=== PATIENT | female | born 2000 | race Caucasian/White ===

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

== ENCOUNTER 2019-07-04 12:40 | Emergency (ER) | payer OTHER ==
[2019-07-04 12:59] VITALS: TEMP 98.3
[2019-07-04] MEDS: DEXAMETHASONE SOD PHOSPHATE 4 MG/ML 1 ML VIAL IV STA (14:17)
[2019-07-04] MEDS: SODIUM CHLORIDE 0.9% 1,000 ML IV ONE (14:17)
[2019-07-04 14:40] LABS: ALT 92 U/L (4-34); AST 41 U/L (14-36); African American GFR (CKD) >90 (>60 ml/min/1.73 sqM); Albumin 4.9 g/dL (3.5-5.0); Alkaline Phosphatase 88 U/L (38-126); Anion Gap 12 mmol/L; Blood Urea Nitrogen 19 mg/dL (7-17); Calcium 10.4 mg/dL (8.4-10.2); Carbon Dioxide 24 mmol/L (22-30); Chloride 106 mmol/L (98-107); Glucose 106 mg/dL (74-99); Non-African American GFR(CKD) >90 (>60 ml/min/1.73 sqM); Potassium 4.3 mmol/L (3.5-5.1); Sodium 142 mmol/L (137-145); Total Protein 8.3 g/dL (6.3-8.2)
[2019-07-04 14:47] LABS: Basophils % (A) 0 %; Eosinophils % (A) 0 %; HCT 43.2 % (34.0-46.0); HGB 14.2 gm/dL (11.4-16.0); Lymphocytes # (A) 2.5 k/uL (1.0-4.8); Lymphocytes % (A) 17 %; MCH 26.2 pg (25.0-35.0); MCHC 32.8 g/dL (31.0-37.0); Mean Platelet Volume 7.2; Monocytes # (A) 0.9 k/uL (0-1.0); Monocytes % (A) 6 %; Neutrophils # (A) 11.2 k/uL (1.3-7.7); Neutrophils % (A) 74 %; Platelet Count 384 k/uL (150-450); RDW 13.7 % (11.5-15.5); WBC 15.1 k/uL (4.0-11.0)
--- NOTE | 2019-07-04 14:52 | ED ---
ENT HPI - General Source: patient, RN notes reviewed, old records reviewed Mode of arrival: ambulatory Limitations: no limitations <Sruthi Campbell - Last Filed: 07/04/19 14:50> <Suzanne Springer - Last Filed: 07/04/19 16:43> <Vicente Krause - Last Filed: 07/04/19 16:55> - General Chief complaint: ENT Stated complaint: Swollen tonsils Time Seen by Provider: 07/04/19 13:25 - History of Present Illness Initial comments: is a 19-year-old female presents emergency department today with sore throat. She reports intermittent chills and fever. Patient reports that she has been on multiple rounds of antibiotics. She finished amoxicillin and later was placed on Levaquin. She is a few days left of her Levaquin at this time. Patient states that she has a hard time swallowing due to swelling. (Sruthi Burnett) - Related Data Previous Rx's Medication Instructions Recorded Amoxicillin/Potassium Clav 1 tab PO Q12HR #20 tab 10/09/17 [Augmentin 875-125 Tablet] Ibuprofen [Motrin] 600 mg PO Q8HR PRN #30 tab 10/09/17 Clindamycin [Cleocin] 450 mg PO Q8H 7 Days #63 capsule 07/04/19 Allergies Allergy/AdvReac Type Severity Reaction Status Date / Time No Known Allergies Allergy Verified 07/04/19 12:57 Review of Systems ROS Other: All systems not noted in ROS Statement are negative. <Sruthi Campbell - Last Filed: 07/04/19 14:50> ROS Other: All systems not noted in ROS Statement are negative. <Suzanne Springer - Last Filed: 07/04/19 16:43> ROS Other: All systems not noted in ROS Statement are negative. <Vicente Krause - Last Filed: 07/04/19 16:55> ROS Statement: Those systems with pertinent positive or pertinent negative responses have been documented in the HPI. Past Medical History Past Medical History: No Reported History History of Any Multi-Drug Resistant Organisms: None Reported Past Surgical History: No Surgical Hx Reported Past Psychological History: No Psychological Hx Reported Smoking Status: Former smoker Past Alcohol Use History: None Reported Past Drug Use History: None Reported <Sruthi Campbell - Last Filed: 07/04/19 14:50> General Exam Limitations: no limitations General appearance: alert, in no apparent distress Head exam: Present: atraumatic, normocephalic, normal inspection Eye exam: Present: normal appearance, PERRL, EOMI. Absent: scleral icterus, conjunctival injection, periorbital swelling ENT exam: Present: normal exam, other ( has bilateral erythematous tonsils. Hot potato voice.) Neck exam: Present: normal inspection. Absent: tenderness, meningismus, lymphadenopathy Respiratory exam: Present: normal lung sounds bilaterally. Absent: respiratory distress, wheezes, rales, rhonchi, stridor Back exam: Present: normal inspection Neurological exam: Present: alert, oriented X3, CN II-XII intact Psychiatric exam: Present: normal affect, normal mood Skin exam: Present: warm, dry, intact, normal color. Absent: rash <Sruthi Campbell - Last Filed: 07/04/19 14:50> - General Exam Comments Initial Comments: 19-year-old female. Alert and oriented 3. Patient appears in no severe distress at this time. (Sruthi Campbell) Course Vital Signs 07/04/19 07/04/19 12:56 16:27 Temperature 98.3 F Pulse Rate 100 88 Respiratory 16 18 Rate Blood Pressure 117/84 144/81 O2 Sat by Pulse 97 98 Oximetry Procedures - Incision & Drainage Consent Obtained: verbal consent Site: other (Peritonsillar abscess) Needle Aspiration Performed?: Yes I&D Drainage Obtained: Pus (2.5 cc) Patient Tolerated Procedure: well, no complications, other (Hurricaine spray used) <Vicente Krause - Last Filed: 07/04/19 16:55> Medical Decision Making - Lab Data Result diagrams: 07/04/19 14:11 07/04/19 14:11 <Sruthi Campbell - Last Filed: 07/04/19 14:50> - Lab Data Result diagrams: 07/04/19 14:11 07/04/19 14:11 <Suzanne Springer - Last Filed: 07/04/19 16:43> - Lab Data Result diagrams: 07/04/19 14:11 07/04/19 14:11 <Vicente Krause - Last Filed: 07/04/19 16:55> - Medical Decision Making 19-year-old female presenting today for chief complaint of sore throat 1 month. I received this patient as a sign-out from physician assistant activities director Sruthi Palafox PA-C. I evaluate patient and agree with history and examination findings. I reviewed laboratory studies and have suspicion patient pharyngitis was caused by mononucleosis given the elevation of AST ALT bilirubin, as I have seen this as a common pattern in the EBV virus. Patient CT revealed a subsequent right-sided peritonsillar abscess. I discussed findings and laboratory studies with Dr. Krause. Patient has been given toradol and decadron. (Suzanne Springer) Patient was reexamined and reevaluated by myself, Dr. Krause. Patient does have right tonsillar swelling and hoarse voice. Computed tomography scan concerning for peritonsillar/tonsillar abscess. Abscess was drained without complication. 2.5 mL/m drainage. Patient feels much better with improvement of voice. Patient is advised need for close follow-up with antibiotics. Patient was previously on amoxicillin and will be changed to clindamycin. (Vicente Krause) - Lab Data Lab Results 07/04/19 07/04/19 07/04/19 Range/Units 13:16 14:11 14:11 WBC 15.1 H (4.0-11.0) k/uL RBC 5.40 (3.80-5.40) m/uL Hgb 14.2 (11.4-16.0) gm/dL Hct 43.2 (34.0-46.0) % MCV 80.0 (80.0-100.0) fL MCH 26.2 (25.0-35.0) pg MCHC 32.8 (31.0-37.0) g/dL RDW 13.7 (11.5-15.5) % Plt Count 384 (150-450) k/uL Neutrophils % 74 % Lymphocytes % 17 % Monocytes % 6 % Eosinophils % 0 % Basophils % 0 % Neutrophils # 11.2 H (1.3-7.7) k/uL Lymphocytes # 2.5 (1.0-4.8) k/uL Monocytes # 0.9 (0-1.0) k/uL Eosinophils # 0.0 (0-0.7) k/uL Basophils # 0.0 (0-0.2) k/uL Sodium 142 (137-145) mmol/L Potassium 4.3 (3.5-5.1) mmol/L Chloride 106 (98-107) mmol/L Carbon Dioxide 24 (22-30) mmol/L Anion Gap 12 mmol/L BUN 19 H (7-17) mg/dL Creatinine 0.65 (0.52-1.04) mg/dL Est GFR (CKD-EPI)AfAm >90 (>60 ml/min/1.73 sqM) Est GFR (CKD-EPI)NonAf >90 (>60 ml/min/1.73 sqM) Glucose 106 H (74-99) mg/dL Calcium 10.4 H (8.4-10.2) mg/dL Total Bilirubin 2.0 H (0.2-1.3) mg/dL AST 41 H (14-36) U/L ALT 92 H (4-34) U/L Alkaline Phosphatase 88 (38-126) U/L Total Protein 8.3 H (6.3-8.2) g/dL Albumin 4.9 (3.5-5.0) g/dL Heterophile Antibody (Negative) Group A Strep Rapid Negative (Negative) 07/04/19 Range/Units 14:11 WBC (4.0-11.0) k/uL RBC (3.80-5.40) m/uL Hgb (11.4-16.0) gm/dL Hct (34.0-46.0) % MCV (80.0-100.0) fL MCH (25.0-35.0) pg MCHC (31.0-37.0) g/dL RDW (11.5-15.5) % Plt Count (150-450) k/uL Neutrophils % % Lymphocytes % % Monocytes % % Eosinophils % % Basophils % % Neutrophils # (1.3-7.7) k/uL Lymphocytes # (1.0-4.8) k/uL Monocytes # (0-1.0) k/uL Eosinophils # (0-0.7) k/uL Basophils # (0-0.2) k/uL Sodium (137-145) mmol/L Potassium (3.5-5.1) mmol/L Chloride (98-107) mmol/L Carbon Dioxide (22-30) mmol/L Anion Gap mmol/L BUN (7-17) mg/dL Creatinine (0.52-1.04) mg/dL Est GFR (CKD-EPI)AfAm (>60 ml/min/1.73 sqM) Est GFR (CKD-EPI)NonAf (>60 ml/min/1.73 sqM) Glucose (74-99) mg/dL Calcium (8.4-10.2) mg/dL Total Bilirubin (0.2-1.3) mg/dL AST (14-36) U/L ALT (4-34) U/L Alkaline Phosphatase (38-126) U/L Total Protein (6.3-8.2) g/dL Albumin (3.5-5.0) g/dL Heterophile Antibody Negative (Negative) Group A Strep Rapid (Negative) Disposition <Sruthi Campbell - Last Filed: 07/04/19 14:50> Is patient prescribed a controlled substance at d/c from ED?: No Time of Disposition: 16:41 <Suzanne Springer - Last Filed: 07/04/19 16:43> <Vicente Krause - Last Filed: 07/04/19 16:55> Clinical Impression: Peritonsillar abscess, Pharyngitis Disposition: HOME SELF-CARE Condition: Good Instructions (If sedation given, give patient instructions): Peritonsillar Abscess (ED) Additional Instructions: Please use medication as discussed. Please follow-up with family doctor on Sunday for repeat CMP, to evaluate liver enzymes. Please follow-up with ENT on Sunday as well for peritonsillar abscess treatment. Begin antibiotics this evening. Please return to emergency room if the symptoms increase or worsen or for any other concerns. Prescriptions: Clindamycin [Cleocin] 450 mg PO Q8H 7 Days #63 capsule Referrals: Hailey Victor DO [Primary Care Provider] - 1-2 days Anand Hull DO [Doctor of Osteopathic Medicine] - 07/07/19
[2019-07-04] MEDS: KETOROLAC 30 MG/ML 1 ML VIAL IVP STA (14:58)
--- NOTE | 2019-07-04 15:06 | CT ---
EXAMINATION TYPE: CT soft tissue neck w con DATE OF EXAM: 07/04/2019 COMPARISON: HISTORY: Dysphagia, dyspnea, throat pain CT DLP: 371.3 mGycm CONTRAST: Patient injected with 100 mL of Isovue 300. TECHNIQUE: Axial images at 3 mm thick sections. Reconstructed images in the coronal plane and sagitt al plane are reviewed. FINDINGS: Limited CT sections are obtained the lung apices. The lung apices appear clear. CT neck: The torus tubarius appear normal. Right fossa of Rosenmuller may be slightly effaced which m ay be due to the tonsillar swelling on the right. Supervisor Sandblaster spaces are normal. Paranasal sinuses an d mastoid air cells are clear. Parotid glands appear normal and symmetrical. Submandibular glands, are normal. Parapharyngeal spac es are normal. No suspicious adenopathy is evident. There is a 2.3 x 2.6 cm hypodense area within the right tonsillar pillar compatible with the tonsilla r abscess. The hypopharynx appears within normal limits. Vocal cord level appear symmetrical. There is a heterogenous hypodense area within the left lobe thyroid. Osseous structures are normal. Report was called to the emergency room PA by Dr. Duncan by telephone at the time of interpretation 1500 hours 07/04/2019. IMPRESSIONS: 1. Right tonsillar abscess measuring 2.6 x 2.3 cm.
[2019-07-04] MEDS: BENZOCAINE SPRAY 1 CAN MUCOUS MEM STA (15:22)
[2019-07-04] MEDS: MORPHINE SULFATE 4 MG/ML SYRINGE IV STA (16:25)
[2019-07-04 16:28] VITALS: BP 144/81; PULSE 88; RESP 18
== END 2019-07-04 16:56 | disposition home or self-care (01) ==
LOC: EC 12:40
DX: J36 Peritonsillar abscess (principal); R79.89 Other specified abnormal findings of blood chemistry; Z87.891 Personal history of nicotine dependence
CPT/HCPCS: 36415; 42700; 70491; 80053; 85025; 86308; 87081; 87430; 96361; 96374; 96375; 99284

== ENCOUNTER 2019-07-25 10:15 | Emergency (ER) | payer OTHER ==
[2019-07-25 10:52] VITALS: RESP 18; TEMP 98.3
[2019-07-25] MEDS ORDERED: BENZOCAINE SPRAY 1 CAN TOPICAL STA (11:24)
--- NOTE | 2019-07-25 11:24 | ED ---
ENT HPI - General Chief complaint: ENT Stated complaint: sore throat, congestion, tonsils swollen per pt Time Seen by Provider: 07/25/19 10:55 Source: patient Mode of arrival: ambulatory Limitations: no limitations - History of Present Illness Initial comments: Patient is a 19-year-old female presenting to the emergency department with chief complaint of peritonsillar abscess. Patient was treated 2 weeks ago for peritonsillar abscess with I&D and clindamycin for 10 days. Patient reports that she finished antibiotics the abscesses reappeared. She does report some changes in her nose but she denies any drooling. Denies any night sweats fevers or chills. Denies taking any other medications alleviate the symptoms. She does report some trouble swallowing - Related Data Previous Rx's Medication Instructions Recorded Amoxicillin/Potassium Clav 1 tab PO Q12HR #20 tab 10/09/17 [Augmentin 875-125 Tablet] Ibuprofen [Motrin] 600 mg PO Q8HR PRN #30 tab 10/09/17 Clindamycin [Cleocin] 450 mg PO Q8H 7 Days #63 capsule 07/04/19 Clindamycin HCl 300 mg PO Q6HR #40 cap 07/25/19 Allergies Allergy/AdvReac Type Severity Reaction Status Date / Time No Known Allergies Allergy Verified 07/25/19 10:49 Review of Systems ROS Statement: Those systems with pertinent positive or pertinent negative responses have been documented in the HPI. ROS Other: All systems not noted in ROS Statement are negative. Past Medical History Past Medical History: No Reported History History of Any Multi-Drug Resistant Organisms: None Reported Past Surgical History: No Surgical Hx Reported Past Psychological History: No Psychological Hx Reported Smoking Status: Former smoker Past Alcohol Use History: None Reported Past Drug Use History: None Reported General Exam Limitations: no limitations General appearance: alert, in no apparent distress Head exam: Present: atraumatic, normocephalic, normal inspection Eye exam: Present: normal appearance, PERRL, EOMI Pupils: Present: normal accommodation ENT exam: Present: normal exam, mucous membranes moist, TM's normal bilaterally, normal external ear exam. Absent: normal oropharynx (Uveal deviation to the left side. Peritonsillar swelling on the right side.) Neck exam: Present: normal inspection, full ROM Respiratory exam: Present: normal lung sounds bilaterally Cardiovascular Exam: Present: regular rate, normal rhythm, normal heart sounds Extremities exam: Present: normal inspection, full ROM Back exam: Present: normal inspection, full ROM Neurological exam: Present: alert, oriented X3 Psychiatric exam: Present: normal affect, normal mood Skin exam: Present: warm, dry, intact, normal color Course Vital Signs 07/25/19 07/25/19 10:49 13:27 Temperature 98.3 F 98.3 F Pulse Rate 100 94 Respiratory 18 18 Rate Blood Pressure 136/82 133/79 O2 Sat by Pulse 100 98 Oximetry Procedures - Incision & Drainage Consent Obtained: verbal consent Indication: Peritonsillar abscess Site: oral Size (cm): 3 Sterile Field Used?: No Needle Aspiration Performed?: Yes Irrigation Performed?: No I&D Drainage Obtained: Pus, Blood Culture Obtained?: No Complications: pain, bleeding Patient Tolerated Procedure: well, no complications Medical Decision Making - Medical Decision Making Patient is a 19-year-old female presenting to the emergency Department with a chief complaint peritonsillar abscess. Patient was treated 14 days ago for the exact same reason. Exam patient does appear to peritonsillar abscess with uvular deviation to the left side and the abscess on the right. Patient was given IV fluids, analgesia, IV clindamycin and Decadron. On reevaluation patient reports some improvement in symptoms. I&D performed. I was able to remove about 4 mL of pus mixed with blood. Patient will be discharged with 10 days of clindamycin. On reevaluation patient reports improvement in her symptoms. She states the pressure has been relieved and she is able to swallow better. Patient also given morphine prior to the procedure. Patient has an appointment in 6 days with an ENT specialist. Strict return parameters were thoroughly discussed the patient is understanding and agreeable. Dr. Krause was present during the procedure. Disposition Clinical Impression: Peritonsillar abscess Disposition: HOME SELF-CARE Condition: Stable Instructions (If sedation given, give patient instructions): Peritonsillar Abscess (DC) Additional Instructions: Make sure to follow-up with an ENT specialist. Take prescribed medication as directed. Please return to emergency department if symptoms worsen. Prescriptions: Clindamycin HCl 300 mg PO Q6HR #40 cap Is patient prescribed a controlled substance at d/c from ED?: No Referrals: None,Stated [Primary Care Provider] - 1-2 days Time of Disposition: 12:57
[2019-07-25] MEDS ORDERED: SODIUM CHLORIDE 0.9% 1,000 ML IV STA (11:26)
[2019-07-25] MEDS ORDERED: CLINDAMYCIN 600 MG in DEXTROSE 5% IN WATER 50 ML IVPB STA ×2 (11:27)
[2019-07-25] MEDS ORDERED: DEXAMETHASONE SOD PHOSPHATE 10 MG/ML 1 ML VIAL IV STA (11:27)
[2019-07-25] MEDS ORDERED: MORPHINE SULFATE 4 MG/ML SYRINGE IVP STA (12:55)
[2019-07-25 13:37] VITALS: BP 133/79; PULSE 94
== END 2019-07-25 13:27 | disposition home or self-care (01) ==
LOC: EC 10:15
DX: J36 Peritonsillar abscess (principal); Z87.891 Personal history of nicotine dependence
CPT/HCPCS: 36415; 87040; 99283; 42700; 96365; 96375 ×2; J2270; J1100

== ENCOUNTER 2019-09-08 02:53 | Observation (INO) | payer OTHER ==
[2019-09-08] MEDS ORDERED: SODIUM CHLORIDE 0.9% 1,000 ML IV STA (03:10)
[2019-09-08] MEDS ORDERED: ONDANSETRON 4 MG/2 ML VIAL IVP STA (03:36)
[2019-09-08 03:57] LABS: Basophils # (A) 0.2 k/uL (0-0.2); Basophils % (A) 1 %; Eosinophils # (A) 0.3 k/uL (0-0.7); Eosinophils % (A) 2 %; HCT 44.7 % (34.0-46.0); HGB 14.9 gm/dL (11.4-16.0); Lymphocytes # (A) 1.5 k/uL (1.0-4.8); Lymphocytes % (A) 10 %; MCH 27.1 pg (25.0-35.0); MCHC 33.3 g/dL (31.0-37.0); MCV 81.5 fL (80.0-100.0); Mean Platelet Volume 7.3; Monocytes % (A) 7 %; Neutrophils # (A) 11.4 k/uL (1.3-7.7); Neutrophils % (A) 78 %; Platelet Count 452 k/uL (150-450); RBC 5.48 m/uL (3.80-5.40); RDW 13.7 % (11.5-15.5); WBC 14.6 k/uL (4.0-11.0)
[2019-09-08] MEDS ORDERED: MORPHINE SULFATE 4 MG/ML SYRINGE IVP STA (03:57)
--- NOTE | 2019-09-08 03:58 | ED ---
ENT HPI - General Chief complaint: ENT Stated complaint: post op issue Time Seen by Provider: 09/08/19 03:10 Source: patient, family Mode of arrival: ambulatory Limitations: no limitations - History of Present Illness Initial comments: Melody 's previously healthy 19-year-old female who presents the ER today for evaluation of persistent nausea and vomiting since having her tonsils out earlier in the week. Patient reports she had her tonsils on the outside surgical center earlier this week, she was discharged home on liquid Vicodin. Patient reports that since that time she's had persistent nausea, she is barely been able to eat or drink. She reports that the medication makes her feel nauseated and have vomiting. She also reports decreased oral intake. She is concerned that she is dehydrated. Mom also notes that she had a black tarry stool after surgery. - Related Data Previous Rx's Medication Instructions Recorded Amoxicillin/Potassium Clav 1 tab PO Q12HR #20 tab 10/09/17 [Augmentin 875-125 Tablet] Ibuprofen [Motrin] 600 mg PO Q8HR PRN #30 tab 10/09/17 Clindamycin [Cleocin] 450 mg PO Q8H 7 Days #63 capsule 07/04/19 Clindamycin HCl 300 mg PO Q6HR #40 cap 07/25/19 Allergies Allergy/AdvReac Type Severity Reaction Status Date / Time No Known Allergies Allergy Verified 09/08/19 03:05 Review of Systems ROS Statement: Those systems with pertinent positive or pertinent negative responses have been documented in the HPI. ROS Other: All systems not noted in ROS Statement are negative. Past Medical History Past Medical History: No Reported History History of Any Multi-Drug Resistant Organisms: None Reported Past Surgical History: No Surgical Hx Reported Past Psychological History: No Psychological Hx Reported Smoking Status: Former smoker Past Alcohol Use History: None Reported Past Drug Use History: None Reported General Exam - General Exam Comments Initial Comments: Physical Exam GENERAL: Appears jaundiced and dehydrated HENT: Normocephalic, Atraumatic. Tonsils with eschar in place from cautery due to previous surgery, no active bleeding EYES: PERRL, EOMI PULMONARY: Unlabored respirations. No audible rales rhonchi or wheezing was noted. CARDIOVASCULAR: Tachycardic, regular ABDOMEN: Soft and nontender with normal bowel sounds. SKIN: Skin is dry and appears jaundiced : Deferred NEUROLOGIC: Patient is alert and oriented x3. Moving all extremities spontaneously MUSCULOSKELETAL: Normal extremities with adequate strength and full range of motion. No lower extremity swelling or edema. No calf tenderness. PSYCHIATRIC: Normal psychiatric evaluation. Limitations: no limitations Course Vital Signs 09/08/19 09/08/19 03:01 05:14 Temperature 98.6 F Pulse Rate 133 H 98 Respiratory 20 18 Rate Blood Pressure 132/86 132/89 O2 Sat by Pulse 96 97 Oximetry Medical Decision Making - Medical Decision Making Patient was seen and evaluated history was obtained from patient and mother bedside Patient actively vomiting on exam Patient appears dehydrated and jaundice Labs were obtained A she was treated with Zofran and morphine Upon reevaluation patient's nausea has improved significantly she is much more comfortable at this time next and labs resulted with significant abnormalities including transaminitis and an elevated bilirubin patient not having any abdominal pain, did have mildly elevated transaminases during previous exam and a mildly elevated bilirubin however this is significantly worse today Patient is prescribed hydrocodone with acetaminophen reports she is only been taking the prescribed 15 mL's every 4 hours which would only be 325 of Tylenol not nearly a toxic level, she does admit she took 2 doses of adult liquid Tyle nol but again took recommended doses every 4 hours and that was only today. She did not take both the regular Tylenol and the hydrocodone. Acetaminophen level was obtained and was negative At this time I'll plan to admit the patient for further evaluation by gastroenterology for this transaminitis and elevated bilirubin, an ultrasound of liver was ordered for morning. First IV fluids were ordered. When necessary nausea and pain medications ordered. This plan was discussed patient who is ag reeable. - Lab Data Result diagrams: 09/08/19 03:48 09/08/19 03:48 Lab Results 09/08/19 09/08/19 09/08/19 Range/Units 03:48 03:48 03:48 WBC 14.6 H (4.0-11.0) k/uL RBC 5.48 H (3.80-5.40) m/uL Hgb 14.9 (11.4-16.0) gm/dL Hct 44.7 (34.0-46.0) % MCV 81.5 (80.0-100.0) fL MCH 27.1 (25.0-35.0) pg MCHC 33.3 (31.0-37.0) g/dL RDW 13.7 (11.5-15.5) % Plt Count 452 H (150-450) k/uL Neutrophils % 78 % Lymphocytes % 10 % Monocytes % 7 % Eosinophils % 2 % Basophils % 1 % Neutrophils # 11.4 H (1.3-7.7) k/uL Lymphocytes # 1.5 (1.0-4.8) k/uL Monocytes # 1.0 (0-1.0) k/uL Eosinophils # 0.3 (0-0.7) k/uL Basophils # 0.2 (0-0.2) k/uL Sodium 140 (137-145) mmol/L Potassium 4.7 (3.5-5.1) mmol/L Chloride 104 (98-107) mmol/L Carbon Dioxide 21 L (22-30) mmol/L Anion Gap 15 mmol/L BUN 16 (7-17) mg/dL Creatinine 0.57 (0.52-1.04) mg/dL Est GFR (CKD-EPI)AfAm >90 (>60 ml/min/1.73 sqM) Est GFR (CKD-EPI)NonAf >90 (>60 ml/min/1.73 sqM) Glucose 106 H (74-99) mg/dL Calcium 10.1 (8.4-10.2) mg/dL Total Bilirubin 5.1 H (0.2-1.3) mg/dL AST 87 H (14-36) U/L ALT 136 H (4-34) U/L Alkaline Phosphatase 128 H (38-126) U/L Total Protein 8.9 H (6.3-8.2) g/dL Albumin 5.0 (3.5-5.0) g/dL Acetaminophen <10.0 ug/mL Disposition Clinical Impression: Jaundice, Transaminitis Disposition: ADMITTED IP TO THIS HOSP Condition: Stable Is patient prescribed a controlled substance at d/c from ED?: No
[2019-09-08 04:06] LABS: ALT 136 U/L (4-34); AST 87 U/L (14-36); African American GFR (CKD) >90 (>60 ml/min/1.73 sqM); Alkaline Phosphatase 128 U/L (38-126); Anion Gap 15 mmol/L; Blood Urea Nitrogen 16 mg/dL (7-17); Calcium 10.1 mg/dL (8.4-10.2); Carbon Dioxide 21 mmol/L (22-30); Chloride 104 mmol/L (98-107); Glucose 106 mg/dL (74-99); Non-African American GFR(CKD) >90 (>60 ml/min/1.73 sqM); Potassium 4.7 mmol/L (3.5-5.1); Sodium 140 mmol/L (137-145); Total Bilirubin 5.1 mg/dL (0.2-1.3); Total Protein 8.9 g/dL (6.3-8.2)
[2019-09-08] MEDS ORDERED: ONDANSETRON 4 MG/2 ML VIAL IVP PRN (04:53)
[2019-09-08] MEDS ORDERED: NALOXONE 0.4 MG/ML 1 ML VIAL IV PRN (04:53)
[2019-09-08] MEDS ORDERED: MORPHINE SULFATE 4 MG/ML SYRINGE IV PRN (04:53)
[2019-09-08] MEDS: SODIUM CHLORIDE 0.9% 1,000 ML IV SCH ×3 (05:14→19:28)
--- NOTE | 2019-09-08 07:41 | US ---
EXAMINATION TYPE: US liver DATE OF EXAM: 09/08/2019 COMPARISON: NONE CLINICAL HISTORY: 19 year-old female transaminitis. TECHNIQUE: Multiple sonographic images of the right upper quadrant are obtained. FINDINGS: EXAM MEASUREMENTS: Liver Length: 14.9 cm Gallbladder Wall: 0.2 cm CBD: 4.1 mm Right Kidney: 11.6 x 4.7 x 5.3 cm Pancreas: Suboptimal visualization of the pancreatic tail due to shadowing from bowel gas. Visualize d portions appear within normal limits. Liver: wnl Gallbladder: No abnormal distention, wall thickening, pericholecystic fluid, or shadowing calculi. Evidence for sonographic Belle's sign: No CBD: wnl Right Kidney: No hydronephrosis. IMPRESSION: Suboptimal visualization of the pancreatic tail. Otherwise, unremarkable right upper quadrant ultraso und.
[2019-09-08] MEDS ORDERED: HYDROcodone/APAP 15 ML SOLUTION PO PRN ×2 (09:27)
[2019-09-08] MEDS: HYDROmorphone 1 MG/ML 1 ML SYRINGE IVP PRN ×2 (09:36→14:55)
[2019-09-08] MEDS ORDERED: PROCHLORPERAZINE SUPPOSITORY 25 MG SUPP RECTAL PRN (10:29)
[2019-09-08] MEDS: MORPHINE ORAL SOLN 10 MG/5 ML CUP PO PRN ×2 (12:03→19:27)
[2019-09-08] MEDS: PANTOPRAZOLE 40 MG TABLET PO SCH ×2 (12:57→17:23)
[2019-09-08 14:23] VITALS: BMI 30.9
--- NOTE | 2019-09-08 14:32 | CONS ---
CONSULTATION DATE OF SERVICE: 09/08/2019 REQUESTING PHYSICIAN: Dr. Philippe Bose The patient is a 19-year-old pleasant white female who was admitted to the hospital after having some vague abdominal discomfort followed by nausea, vomiting that happened yesterday. The patient went, had tonsillectomy done at [facility] on September 04 and she was discharged home on the same day. She was sent home on liquid Vicodin and patient states that she is not able to eat much and has been only on clear liquids since the surgery. Yesterday, she felt nauseated. She had some vague abdominal pain. She threw up, came to the emergency room and was noted to have jaundice and elevated LFTs and hence were are consulting for this issue. During her prior hospitalization on July 25, 2019, she came to the emergency room with a sore throat and acute tonsillitis. She was evaluated for infectious mono that was negative. Her serum transaminases at that time an also slightly elevated with a bilirubin of 2, AST and ALT at 41 and 92 respectively. She has not had any of these labs repeated since July 04. On September 08, when she came to the emergency room this morning, the bilirubin is 5.1, AST and ALT are 87 and 136 respectively. Albumin is 5. Neutrophil antibodies negative. Rapid strep is negative. Other labs, WBC was 14.6, hemoglobin 14.9, platelets of 452. The patient was diagnosed with acute tonsillitis several x3 times in since May of this year. She was then given antibiotics including clindamycin at 3 different times and ampicillin at one time. She is not sure of the rest of the antibiotics. No family present at the bedside. She had no history of chronic liver disease in the past. PAST MEDICAL HISTORY: Significant for acute recurrent tonsillitis. PAST SURGICAL HISTORY: Tonsillectomy 4 days ago. MEDICATIONS: At home include Augmentin in the past. Clindamycin recently. PAST SOCIAL HISTORY: Chronic smoker. No alcohol use. FAMILY HISTORY: Unremarkable. REVIEW OF SYSTEMS: CARDIOPULMONARY: No chest pain, shortness of breath. No dysuria or hematuria. MUSCULOSKELETAL unremarkable. SKIN unremarkable. ENDOCRINE unremarkable. PSYCHIATRIC unremarkable. NEUROLOGY unremarkable. ENT/vision unremarkable. CONSTITUTIONAL: No recent weight loss. No fever, chills, night sweats. PHYSICAL EXAMINATION: She appears comfortable. No apparent distress. VITAL SIGNS: Stable. Blood pressure is 130/80, pulse rate 92, temperature. HEENT examination unremarkable. Conjunctivae pink. Sclerae anicteric. Oral cavity no lesions the auscultation. HEART: Regular rate and rhythm. ABDOMEN: Soft, nontender, nondistended. Bowel sounds are positive. No organomegaly. EXTREMITIES: No pedal edema. SKIN: No rashes. NEUROLOGIC: Alert and oriented x3. No focal deficits. LABS: From today WBC 14.6, hemoglobin 14.9, platelets 452. AST and ALT are 87 and 136 respectively. T-bilirubin is 5.1, alkaline phosphatase is 128. Serum Acetaminophen level is less than 10. Head of antibodies negative impression this lady was noted to have elevated serum transaminases and mild jaundice since July 04, 2019. Her bilirubin was 2, at that time with ALT and AST at 41 and 92 respectively. She did not have any labs done after that. Repeat labs 2 months later, which was today is showed a bilirubin of 5.1 with AST and ALT at 87 and 136 respectively. ASSESSMENT AND PLAN: 1. She has been diagnosed with acute recurrent tonsillitis history of 4 times since May and has been on various antibiotics including clindamycin and amoxicillin is unclear whether she took Augmentin at this time since Augmentin is well known to cause cholestatic liver disease. However, since she has been having elevated serum transaminases in June since June, possibility for chronic liver disease also needs to be considered. Recommendation we will do complete workup complete illogical workup for chronic liver disease. 2. Repeat labs in the morning. 3. Avoid Augmentin. 4. Reviewed ultrasound results with the patient. We did not show any gallstones or biliary ductal dilation. 5. Continue on a clear liquid diet and advance as tolerated and we will follow with you closely during the hospital stay. Thank you for this consultation. MMODL / IJN: [id number] /
[2019-09-08] MEDS: ONDANSETRON 4 MG/2 ML VIAL IVP SCH ×2 (17:23→23:05)
[2019-09-09 01:11] LABS: Hepatitis A Antibody IgM Non-Reactive (Non-Reactive); Hepatitis B Core IgM Non-Reactive (Non-Reactive); Hepatitis B Surface Antigen Non-Reactive (Non-Reactive); Hepatitis C IgG Antibody Non-Reactive (Non-Reactive)
[2019-09-09 01:17] LABS: Ferritin 108.1 ng/mL (10.0-291.0)
[2019-09-09 01:46] LABS: % Iron Saturation 6.06 (12.00-45.00)
[2019-09-09 01:47] LABS: Alpha Fetoprotein, Tumor Mkr <2.5 ng/mL (0.0-7.9)
[2019-09-09] MEDS: MORPHINE ORAL SOLN 10 MG/5 ML CUP PO PRN (01:58)
[2019-09-09] MEDS: SODIUM CHLORIDE 0.9% 1,000 ML IV SCH (02:47)
[2019-09-09 07:02] LABS: ALT 107 U/L (4-34); AST 49 U/L (14-36); African American GFR (CKD) >90 (>60 ml/min/1.73 sqM); Albumin 3.7 g/dL (3.5-5.0); Alkaline Phosphatase 102 U/L (38-126); Anion Gap 8 mmol/L; Blood Urea Nitrogen 7 mg/dL (7-17); Carbon Dioxide 24 mmol/L (22-30); Chloride 106 mmol/L (98-107); Glucose 73 mg/dL (74-99); Non-African American GFR(CKD) >90 (>60 ml/min/1.73 sqM); Sodium 138 mmol/L (137-145); Total Bilirubin 2.1 mg/dL (0.2-1.3); Total Protein 6.8 g/dL (6.3-8.2)
[2019-09-09] MEDS: HYDROmorphone 1 MG/ML 1 ML SYRINGE IVP PRN (07:40)
[2019-09-09 07:59] VITALS: BP 124/83; PULSE 91; RESP 17; TEMP 99.3
[2019-09-09] MEDS: PANTOPRAZOLE 40 MG TABLET PO SCH (08:55)
--- NOTE | 2019-09-09 08:55 | P.HPIM ---
History of Present Illness H&P Date: 09/08/19 Chief Complaint: nausea, vomiting, abd pain Melody Turpin is a 19-year-old female who presented to the hospital complaining of three-day history of nausea, vomiting, abdominal pain after tonsillectomy. She has had recurrent tonsillitis over the past few months including peritonsillar abscess which was drained, and had a recurrence of her abscess last week so had a tonsillectomy done at [facility]. This was uncomplicated and she was discharged home the same day. She states she was unable to fill liquid Vicodin and had been taking Tylenol for pain control. She states over the weekend she was not able to keep anything down, felt nauseous, vomited multiple times. She denies hematemesis. On presentation her vitals were stable, WBC 14.6 K, BUN/creatinine at baseline, AST and ALTs 87 and 136, bilirubin 5.1. A liver ultrasound was performed which was unremarkable. Review of Systems All systems: negative Constitutional: Reports malaise, Denies chills, Denies fever Eyes: denies blurred vision, denies pain Ears, nose, mouth and throat: Reports as per HPI, Reports headache, Reports mouth pain, Reports nasal congestion, Reports neck fullness/pressure, Reports sore throat Cardiovascular: Denies chest pain, Denies shortness of breath Respiratory: Denies cough Gastrointestinal: Reports as per HPI, Reports abdominal pain, Reports nausea, Reports vomiting, Denies diarrhea Genitourinary: Denies dysuria, Denies hematuria Musculoskeletal: Denies myalgias Integumentary: Denies pruritus, Denies rash Neurological: Denies numbness, Denies weakness Psychiatric: Denies anxiety, Denies depression Endocrine: Denies fatigue, Denies weight change Past Medical History Past Medical History: No Reported History History of Any Multi-Drug Resistant Organisms: None Reported Past Surgical History: Tonsillectomy Past Anesthesia/Blood Transfusion Reactions: No Reported Reaction Smoking Status: Former smoker - Past Family History Father Additional Family Medical History / Comment(s): Back problems Mother Family Medical History: Hypertension Medications and Allergies Home Medications Medication Instructions Recorded Confirmed Type Acetaminophen [Children's Tylenol] 960 mg PO Q4H PRN 09/08/19 09/08/19 History HYDROcodone/APAP [[place] Elixir 15 ml PO Q4HR PRN 09/08/19 09/08/19 History 7.5-325Mg/15Ml] Allergies Allergy/AdvReac Type Severity Reaction Status Date / Time No Known Allergies Allergy Verified 09/08/19 07:02 Physical Exam Vitals: Vital Signs Temp Pulse Resp BP Pulse Ox 09/09/19 07:00 99.3 F 91 17 124/83 97 09/09/19 03:45 94 18 09/09/19 00:00 98.5 F 94 18 117/73 97 09/08/19 20:00 18 09/08/19 15:55 98.9 F 85 18 124/76 97 Intake and Output 09/08/19 09/09/19 09/09/19 22:59 06:59 14:59 Intake Total 375 1000 Balance 375 1000 Intake: Intake, IV Titration 375 1000 Amount Sodium Chloride 0.9% 1, 375 1000 000 ml @ 125 mls/hr IV . Q8H ELIANA Rx#:[id number] Other: # Voids 1 1 Gen.: Well-developed, well-nourished white female in no acute distress HEENT normocephalic, atraumatic. TMs clear bilaterally. Posterior pharynx with thick drainage, no bleeding Neck: Supple, no JVD, no thyromegaly Lymph: Cervical lymphadenopathy, no axillary lymphadenopathy CV: Regular rate and rhythm, no murmur, pulses 2+ Lungs: Normal effort, clear throughout Abdomen: Soft, nontender, nondistended, bowel sounds present Neuro: Alert and oriented 3, no focal deficit Skin: Warm and dry Results CBC & Chem 7: 09/08/19 03:48 09/09/19 05:53 Labs: Abnormal Lab Results - Last 24 Hours (Table) 09/08/19 09/09/19 Range/Units 03:48 05:53 Glucose 73 L (74-99) mg/dL Iron 18 L (50-170) ug/dL % Saturation 6.06 L (12.00-45.00) Total Bilirubin 2.1 H (0.2-1.3) mg/dL AST 49 H (14-36) U/L ALT 107 H (4-34) U/L Thrombosis Risk Factor Assmnt - Choose All That Apply Any of the Below Risk Factors Present?: Yes Each Factor Represents 1 point: Obesity (BMI >25) Other Risk Factors: No Other congenital or acquired thrombophilia - If yes, enter type in comment: No Thrombosis Risk Factor Assessment Total Risk Factor Score: 1 Thrombosis Risk Factor Assessment Level: Low Risk Assessment and Plan (1) Abdominal pain Current Visit: Yes Status: Acute Code(s): R10.9 - UNSPECIFIED ABDOMINAL PAIN SNOMED Code(s): 81611921 (2) Nausea and vomiting Current Visit: Yes Status: Acute Code(s): R11.2 - NAUSEA WITH VOMITING, UNSPECIFIED SNOMED Code(s): 43492128 (3) Jaundice Current Visit: Yes Status: Acute Code(s): R17 - UNSPECIFIED JAUNDICE SNOMED Code(s): 83119586 (4) Transaminitis Current Visit: Yes Status: Acute Code(s): R74.0 - NONSPEC ELEV OF LEVELS OF TRANSAMNS & LACTIC ACID DEHYDRGNSE SNOMED Code(s): 248708309 Plan: 1. Nausea and vomiting. Abdominal pain. Suspect secondary to drainage and poor PO intake. GI consult for further evaluation. Pain control and Zofran 2. Status post tonsillectomy. Leukocytosis. Suspect reactive cover with ceftriaxone
--- NOTE | 2019-09-09 09:33 | P.DS ---
Providers Date of admission: 09/08/19 04:58 Expected date of discharge: 09/09/19 Attending physician: Philippe Bose MD Consults: 09/08/19 04:54 Consult Physician Urgent Consulting Provider: Taran Rao Consult Reason/Comments: transaminitis, jaundice Do you want consulting provider notified?: Yes, Notify in am Primary care physician: Hailey Victor - Discharge Diagnosis(es) (1) Abdominal pain Current Visit: Yes Status: Acute (2) Nausea and vomiting Current Visit: Yes Status: Acute (3) Jaundice Current Visit: Yes Status: Acute (4) Transaminitis Current Visit: Yes Status: Acute Hospital Course: Melody Turpin is a 19-year-old female who presented to the hospital complaining of three-day history of nausea, vomiting, abdominal pain after tonsillectomy. She has had recurrent tonsillitis over the past few months including peritonsillar abscess which was drained, and had a recurrence of her abscess last week so had a tonsillectomy done at [facility]. This was uncomplicated and she was discharged home the same day. She states she was unable to fill liquid Vicodin and had been taking Tylenol for pain control. She states over the weekend she was not able to keep anything down, felt nauseous, vomited multiple times. She denies hematemesis. On presentation her vitals were stable, WBC 14.6 K, BUN/creatinine at baseline, AST and ALTs 87 and 136, bilirubin 5.1. A liver ultrasound was performed which was unremarkable. The patient was admitted to medicine and seen by gastroenterology. She was given IV fluids and oral morphine to control her pain. She underwent hepatic workup including tumor markers and hepatitis panel which was negative. Her bilirubin and liver function testing normalized with IV fluid. Her transaminitis was thought to be secondary to amoxicillin use previous to her tonsillectomy. She was cleared by GI and is discharged in stable condition with Zofran and recommended to follow up with her PCP. Discharge exam Gen.: Well-developed, well-nourished white female HEENT: Bilateral neck fullness. Posterior pharynx with reduced drainage CV: Regular rate and rhythm, no murmur Lungs: Normal effort clear throughout Skin: Warm and dry Patient Condition at Discharge: Stable Plan - Discharge Summary Discharge Rx Participant: No New Discharge Prescriptions: New Ondansetron [Zofran] 4 mg PO Q8HR PRN #20 tab PRN Reason: Nausea Continue HYDROcodone/APAP [[place] Elixir 7.5-325Mg/15Ml] 15 ml PO Q4HR PRN PRN Reason: Pain Acetaminophen [Children's Tylenol] 960 mg PO Q4H PRN PRN Reason: Pain Discharge Medication List Acetaminophen [Children's Tylenol] 960 mg PO Q4H PRN 09/08/19 [History] HYDROcodone/APAP [[place] Elixir 7.5-325Mg/15Ml] 15 ml PO Q4HR PRN 09/08/19 [History] Ondansetron [Zofran] 4 mg PO Q8HR PRN #20 tab 09/09/19 [Rx] Follow up Appointment(s)/Referral(s): Hailey Victor DO [Primary Care Provider] - 1-2 days Discharge Disposition: HOME SELF-CARE
[2019-09-09 13:55] LABS: Ceruloplasmin 33.8 mg/dL (20.0-60.0)
== END 2019-09-09 11:13 | disposition home or self-care (01) ==
LOC: EC 02:53 → 1SOBS 04:58
PROVIDERS: ADMIT Family Medicine; ATTEND Family Medicine
DX: R11.2 Nausea with vomiting, unspecified (principal); R10.9 Unspecified abdominal pain; R17 Unspecified jaundice; R74.0 Nonspecific elevation of levels of transaminase and lactic acid dehydrogenase [LDH]; Z87.891 Personal history of nicotine dependence; Z98.890 Other specified postprocedural states
CPT/HCPCS: 96365; 96366; 96375 ×2; 96376 ×2; 96361; 99284; 36415; 80053 ×2; 80074; 82728; 83540; 83550; 85025; 83516 ×2; 82103; 82105; 82390; 86038; 76705; G0378 ×2; G0480; J2270; J2405; J0696 ×2; J1170 ×2; 80329

== ENCOUNTER 2025-02-04 21:18 | Emergency (ER) | payer OTHER ==
--- NOTE | 2025-02-04 21:35 | ED ---
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 No chest pain. Just fever chills body aches pain. Patient has no medical history takes no medications no drugs or alcohol MD Complaint: fever, cough, sore throat -: days(s) Severity: moderate Severity scale (1-10): 6 Quality: aching Consistency: constant Improves With: nothing Worsens With: nothing Context: sick contacts Associated Symptoms: fever, myalgias, nasal congestion, sore throat Treatments Prior to Arrival: Ibuprofen - Related Data Home Medications Medication Instructions Recorded Confirmed Acetaminophen [Children's Tylenol] 960 mg PO Q4H PRN 09/08/19 09/08/19 HYDROcodone/APAP [[place] Elixir 15 ml PO Q4HR PRN 09/08/19 09/08/19 7.5-325Mg/15Ml] Previous Rx's Medication Instructions Recorded Ondansetron [Zofran] 4 mg PO Q8HR PRN #20 tab 09/09/19 Azithromycin [Zithromax] 500 mg PO DAILY #5 tab 02/04/25 Benzonatate [Tessalon Perles] 100 mg PO TID PRN #15 capsule 02/04/25 Allergies Allergy/AdvReac Type Severity Reaction Status Date / Time No Known Allergies Allergy Verified 02/04/25 21:30 Review of Systems ROS Statement: Those systems with pertinent positive or pertinent negative responses have been documented in the HPI. ROS Other: All systems not noted in ROS Statement are negative. Past Medical History Past Medical History: No Reported History History of Any Multi-Drug Resistant Organisms: None Reported Past Surgical History: Tonsillectomy Past Anesthesia/Blood Transfusion Reactions: No Reported Reaction Past Psychological History: No Psychological Hx Reported Smoking Status: Never smoker Past Alcohol Use History: Occasional Past Drug Use History: None Reported - Past Family History Father Additional Family Medical History / Comment(s): Back problems Mother Family Medical History: Hypertension General Exam Limitations: no limitations General appearance: alert, in no apparent distress Head exam: Present: atraumatic, normocephalic, normal inspection Eye exam: Present: normal appearance, PERRL, EOMI. Absent: scleral icterus, conjunctival injection, periorbital swelling ENT exam: Present: normal exam, mucous membranes moist Neck exam: Present: normal inspection. Absent: tenderness, meningismus, lymphadenopathy Respiratory exam: Present: normal lung sounds bilaterally. Absent: respiratory distress, wheezes, rales, rhonchi, stridor Cardiovascular Exam: Present: regular rate, normal rhythm, normal heart sounds. Absent: systolic murmur, diastolic murmur, rubs, gallop, clicks GI/Abdominal exam: Present: soft, normal bowel sounds. Absent: distended, tenderness, guarding, rebound, rigid Extremities exam: Present: normal inspection, full ROM, normal capillary refill. Absent: tenderness, pedal edema, joint swelling, calf tenderness Back exam: Present: normal inspection Neurological exam: Present: alert, oriented X3, CN II-XII intact Psychiatric exam: Present: normal affect, normal mood Skin exam: Present: warm, dry, intact, normal color. Absent: rash Course Vital Signs 02/04/25 21:30 Temperature 99.7 F H Pulse Rate 117 H Respiratory 18 Rate Blood Pressure 139/87 O2 Sat by Pulse 98 Oximetry - Reevaluation(s) Reevaluation #1: 02/04/25 22:45 Medical records reviewed Reevaluation #2: 02/04/25 22:45 Patient symptoms improved Reevaluation #3: 02/04/25 22:45 Patient informed of results questions answered Reevaluation #4: Was pt. sent in by a medical professional or institution (, PA, HOSPICE HOME CARE COORDINATOR, urgent care, hospital, or [place] [facility] facility...) When possible be specific @ -no Did you speak to anyone other than the patient for history (EMS, parent, family, police, friend...)? What history was obtained from this source @ -no Did you review nursing and triage notes (agree or disagree)? Why? @ -agree Are old charts reviewed (outside hosp., previous admission, EMS record, old EKG, old radiological studies, urgent care reports/EKG's, [place] [facility] records)? Report findings @ -yes Differential Diagnosis (chest pain, altered mental status, abdominal pain women, abdominal pain men, vaginal bleeding, weakness, fever, dyspnea, syncope, headache, dizziness, GI bleed, back pain, seizure, CVA, palpatations, mental health, musculoskeletal)? @ -prior EKG interpreted by me (3pts min.). @ -yes X-rays interpreted by me (1pt min.). @ -yes negative for acute disease CT interpreted by me (1pt min.). @ -no U/S interpreted by me (1pt. min.). @ -no What testing was considered but not performed or refused? (CT, X-rays, U/S, labs)? Why? @ -none What meds were considered but not given or refused? Why? @ -none Did you discuss the management of the patient with other professionals (alea quinteros i.e. , PA, HOSPICE HOME CARE COORDINATOR, lab, RT, psych nurse, social welfare clerk, vendor analyst, teacher, information assurance officer, briefcase sewer)? Give summary @ -no Was smoking cessation discussed for >3mins.? @ -no Was critical care preformed (if so, how long)? @ -no Were there social determinants of health that impacted care today? How? (Homelessness, low income, unemployed, alcoholism, drug addiction, transportation, low edu. Level, literacy, decrease access to med. care, long-term, rehab)? @ -none Was there de-escalation of care discussed even if they declined (Discuss DNR or withdrawal of care, Hospice)? DNR status @ -no What co-morbidities impacted this encounter? (DM, HTN, Smoking, COPD, CAD, Cancer, CVA, ARF, Chemo, Hep., AIDS, mental health diagnosis, sleep apnea, morbid obesity)? @ -none Was patient admitted / discharged? Hospital course, mention meds given and route, prescriptions, significant lab abnormalities, going to OR and other pertinent info. @ - Undiagnosed new problem with uncertain prognosis? @ -no Drug Therapy requiring intensive monitoring for toxicity (Heparin, Nitro, Insulin, Cardizem)? @ -no Were any procedures done? @ -no Diagnosis/symptom? @ - Acute, or Chronic, or Acute on Chronic? @ -Acute Uncomplicated (without systemic symptoms) or Complicated (systemic symptoms)? @ -Complicated Side effects of treatment? @ -no Exacerbation, Progression, or Severe Exacerbation? @ -exacerbation Poses a threat to life or bodily function? How? (Chest pain, [place], [place], pneumonia, PE, COPD, DKA, ARF, appy, cholecystitis, CVA, Diverticulitis, Homicidal, Suicidal, threat to staff... and all critical care pts) @ -yes Reevaluation #5: Differential Fever: Pneumonia, viral URI, endocarditis, myocarditis, pericarditis, otitis, sinusitis, peritonsillar Abscess, retropharyngeal Abscess, epiglottitis, peritonitis, appendicitis, Margaret cystitis, diverticulitis, hepatitis, colitis, UTI, PID, TOA, pyelonephritis, prostatitis, epididymitis, meningitis, encephalitis, pulmonary embolism, CVA, thyroid storm, pancreatitis, adrenal crisis, cavernous sinus thrombosis, this is not meant to be an all-inclusive list. Medical Decision Making - Medical Decision Making 24 female to ER for fever body aches and pains. Patient does have signs and symptoms of bacterial tracheitis productive and purulent cough. Patient placed antibiotics and can be discharged home - Lab Data Lab Results 02/04/25 Range/Units 23:00 Influenza Type A (PCR) Not Detected (Not Detectd) Influenza Type B (PCR) Not Detected (Not Detectd) RSV (PCR) Not Detected (Not Detectd) SARS-CoV-2 (PCR) Not Detected (Not Detectd) - Radiology Data Radiology results: report reviewed (Chest x-ray suggestive of pneumonia), image reviewed Disposition Clinical Impression: Upper respiratory tract infection, Acute upper respiratory infection, Fever, Bacterial tracheitis Disposition: HOME SELF-CARE Condition: Good Prescriptions: Benzonatate [Tessalon Perles] 100 mg PO TID PRN #15 capsule PRN Reason: Cough Azithromycin [Zithromax] 500 mg PO DAILY #5 tab Is patient prescribed a controlled substance at d/c from ED?: No Referrals: Philippe Bose MD [Primary Care Provider] - 1-2 days Time of Disposition: 23:55
[2025-02-04] MEDS: BENZONATATE 100 MG CAP PO STA (22:45)
[2025-02-04] MEDS: IBUPROFEN 800 MG TAB PO STA (22:46)
[2025-02-04] MEDS: ACETAMINOPHEN TAB 500 MG TAB PO STA (22:46)
[2025-02-04] MEDS: ONDANSETRON ODT 4 MG TAB PO STA (22:47)
[2025-02-04 23:47] LABS: RSV Not Detected (Not Detectd)
--- NOTE | 2025-02-04 23:56 | XR ---
EXAM: XR Chest, 2 Views CLINICAL HISTORY: ITS.REASON XR Reason: cough TECHNIQUE: Frontal and lateral views of the chest. COMPARISON: No relevant prior studies available. FINDINGS: Lungs: Unremarkable. No consolidation. Pleural space: Unremarkable. No pneumothorax. Heart: Unremarkable. No cardiomegaly. Mediastinum: Unremarkable. Bones/joints: Unremarkable. IMPRESSION: No consolidation.
[2025-02-05 00:14] VITALS: BP 132/84; PULSE 90; RESP 19; TEMP 98.2
[2025-02-05] MEDS: AZITHROMYCIN 500 MG TAB PO STA (00:15)
== END 2025-02-05 00:15 | disposition home or self-care (01) ==
LOC: EC 21:18
DX: J04.10 Acute tracheitis without obstruction (principal); X32.XXXA Exposure to sunlight, initial encounter
CPT/HCPCS: 71046; 87636; 87651; 99283